=== PATIENT | male | born 1990 | race Caucasian/White ===

== ENCOUNTER 2016-07-30 16:55 | Emergency (ER) | payer OTHER ==
[~2016-07-30] VITALS: Ht 180.3 cm; Wt 64.0 kg
[~2016-07-30 16:55] MED LIST: ALEVE COLD & S1 EACH; BACTRIM,SEPT1 TABLET PO; BUTALB-APAP-CA1 EACH PO; CLEOCIN300 MG PO; DILAUDID2 MG PO; LEVAQUIN500 MG PO; MOTRIN600 MG PO; MOTRIN800 MG PO; NOHOMEMEDS; OXYCODONE HCL20 M1 PO; PERCOCET 5/31 TABLET PO; PERCOCET 7.51 TABLET PO; TYLENOL WITH C1 EACH PO
[2016-07-30] MEDS ORDERED: CLINDAMYCIN HC300 MG PO (18:07)
[2016-07-30 18:22] VITALS: BP 91/74
== END 2016-07-30 18:23 | disposition home or self-care (01) ==
LOC: EME 16:55
PROC: 0H9EXZZ Drainage of Left Lower Arm Skin, External Approach (ICD-10-PCS; principal; 2016-07-30)
DX: L03.114 Cellulitis of left upper limb (principal); L02.414 Cutaneous abscess of left upper limb; F17.200 Nicotine dependence, unspecified, uncomplicated
CPT/HCPCS: 73090; 99281; 99284

== ENCOUNTER 2016-08-24 16:53 | Emergency (ER) | payer OTHER ==
[~2016-08-24] VITALS: Ht 180.3 cm; Wt 65.0 kg
[~2016-08-24 16:53] MED LIST changes: +CLINDAMYCIN HC300 MG PO
[2016-08-24] MEDS ORDERED: BACTRIM,SEPT1 TABLET PO (18:11)
[2016-08-24] MEDS ORDERED: KEFLEX500 MG PO (18:11)
[2016-08-24 18:28] VITALS: BP 110/80
== END 2016-08-24 18:30 | disposition home or self-care (01) ==
LOC: EME 16:53
DX: L03.116 Cellulitis of left lower limb (principal); F17.200 Nicotine dependence, unspecified, uncomplicated
CPT/HCPCS: 73610; 99281; 99283

== ENCOUNTER 2016-08-25 23:17 | Emergency (ER) | payer OTHER ==
[~2016-08-25] VITALS: Ht 182.9 cm; Wt 63.6 kg
[~2016-08-25 23:17] MED LIST changes: +KEFLEX500 MG PO
[2016-08-26 00:18] LABS: HEMATOCRIT 39.5 % (38.0-50.0); MCH 29.5 PG (29.0-34.0); MCHC 34.2 G/DL (30.0-36.0); MCV 86.4 FL (86-99); MEAN PLAT.VOLUME 9.9 uM^3 (9.0-12.4); PLATELET COUNT 209 K/uL (156-360); RBC DIS.WIDTH-CV 12.4 % (11.8-14.6); RBC DIS.WIDTH-SD 39.3 % (39-53); RED BLOOD COUNT 4.57 M/uL (4.00-5.50); WHITE BLOOD COUNT 6.5 K/uL (4.1-10.2)
[2016-08-26 00:28] LABS: CHLORIDE 111 mEq/L (99-109); POTASSIUM 4.2 mEq/L (3.7-5.4); SODIUM 142 mEq/L (136-147)
[2016-08-26 00:29] LABS: GLUCOSE 93 mg/dL (70-99)
[2016-08-26 00:31] LABS: ANION GAP 9 MEQ/L (2-14)
[2016-08-26 00:33] LABS: GFR ESTIMATE (CALCULATED) > 59 mL/min/; SERUM ETHYL ALCOHOL 39 mg/dL
[2016-08-26 00:35] LABS: UREA NITROGEN (BUN) 10 mg/dL (9-23)
[2016-08-26 00:36] LABS: SALICYLATE < 5.0 MG/DL (15-30)
[2016-08-26 02:21] VITALS: BP 116/73
== END 2016-08-26 02:23 | disposition home or self-care (01) ==
LOC: EME → EDBD 23:17 → EME 08-26 02:23
PROVIDERS: Emergency Medicine
DX: F32.9 Major depressive disorder, single episode, unspecified (principal); F43.0 Acute stress reaction; F10.20 Alcohol dependence, uncomplicated; Y90.1 Blood alcohol level of 20-39 mg/100 ml; F17.200 Nicotine dependence, unspecified, uncomplicated; Z04.6 Encounter for general psychiatric examination, requested by authority
CPT/HCPCS: 80048; 81003; 85027; 90837; 99281; 99285; G0480

== ENCOUNTER 2016-12-23 04:18 | Emergency (ER) | payer OTHER ==
[~2016-12-23] VITALS: Ht 180.3 cm; Wt 68.8 kg
[2016-12-23] MEDS ORDERED: BACTRIM,SEPT1 TABLET PO (04:57)
[2016-12-23] MEDS ORDERED: BACTROBAN OINTM22 GM TP (04:57)
[2016-12-23 05:10] VITALS: BP 147/82
== END 2016-12-23 05:11 | disposition home or self-care (01) ==
LOC: EME 04:18
DX: L03.211 Cellulitis of face (principal); F17.200 Nicotine dependence, unspecified, uncomplicated
CPT/HCPCS: 99281; 99283

== ENCOUNTER 2016-12-28 05:10 | Emergency (ER) | payer OTHER ==
[~2016-12-28] VITALS: Ht 180.3 cm; Wt 68.1 kg
[~2016-12-28 05:10] MED LIST changes: +BACTROBAN OINTM22 GM TP
[2016-12-28 05:14] VITALS: BP 114/75
== END 2016-12-28 05:43 | disposition left against medical advice (07) ==
LOC: EME 05:10
DX: T14.8XXA Other injury of unspecified body region, initial encounter (principal); M25.551 Pain in right hip; V03.90XA Pedestrian on foot injured in collision with car, pick-up truck or van, unspecified whether traffic or nontraffic accident, initial encounter; F17.200 Nicotine dependence, unspecified, uncomplicated
CPT/HCPCS: 99281; 99283

== ENCOUNTER 2017-03-25 23:41 | Emergency (ER) | payer OTHER ==
[~2017-03-25] VITALS: Ht 180.3 cm; Wt 70.3 kg
[2017-03-25 23:50] VITALS: BP 119/73
== END 2017-03-26 00:49 | disposition left against medical advice (07) ==
LOC: EME 23:41
DX: R30.0 Dysuria (principal); Z53.21 Procedure and treatment not carried out due to patient leaving prior to being seen by health care provider
CPT/HCPCS: 81003; 87086

== ENCOUNTER 2017-08-24 13:23 | Emergency (ER) | payer OTHER ==
[~2017-08-24] VITALS: Ht 180.3 cm; Wt 72.3 kg
[2017-08-24] MEDS ORDERED: TESSALON PERLE100 MG PO (14:40)
[2017-08-24] MEDS ORDERED: PREDNISONE20 MG PO (14:40)
[2017-08-24] MEDS ORDERED: VENTOLIN HFA18 GM IH (14:40)
[2017-08-24 15:03] VITALS: BP 135/81
== END 2017-08-24 15:05 | disposition home or self-care (01) ==
LOC: EME 13:23
DX: J20.9 Acute bronchitis, unspecified (principal); F17.200 Nicotine dependence, unspecified, uncomplicated; Z79.891 Long term (current) use of opiate analgesic; Z88.5 Allergy status to narcotic agent; Z88.6 Allergy status to analgesic agent
CPT/HCPCS: 71046; 93005; 94640; 99281; 99284

== ENCOUNTER 2017-08-29 19:40 | Emergency (ER) | payer OTHER ==
[~2017-08-29] VITALS: Ht 180.3 cm; Wt 73.0 kg
[~2017-08-29 19:40] MED LIST changes: +PREDNISONE20 MG PO; +TESSALON PERLE100 MG PO; +VENTOLIN HFA18 GM IH
[2017-08-29 22:27] VITALS: BP 103/63
== END 2017-08-29 22:30 | disposition home or self-care (01) ==
LOC: EME 19:40
PROC: 3E0234Z Introduction of Serum, Toxoid and Vaccine into Muscle, Percutaneous Approach (ICD-10-PCS; principal; 2017-08-29)
DX: S10.91XA Abrasion of unspecified part of neck, initial encounter (principal); S00.01XA Abrasion of scalp, initial encounter; W19.XXXA Unspecified fall, initial encounter; Y93.84 Activity, sleeping; Z23 Encounter for immunization; F17.200 Nicotine dependence, unspecified, uncomplicated; Z88.6 Allergy status to analgesic agent; Z88.5 Allergy status to narcotic agent
CPT/HCPCS: 70450; 72125; 99281; 99284